=== PATIENT | female | born 1945 | race Caucasian/White ===

== ENCOUNTER 2016-10-16 13:22 | Day surgery (SDC) | payer MEDICARE, BC ==
--- NOTE | 2016-10-21 09:50 | Operative Note ---
DATE OF SURGERY: 10/16/2016 OPERATION: ESOPHAGOGASTRODUODENOSCOPY with biopsy. PREOPERATIVE DIAGNOSIS: Heartburn, episodic dysphagia, and family history of esophageal cancer. POSTOPERATIVE DIAGNOSES: 1. 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 2. Mid esophageal diverticulum. PROCEDURE: After informed consent was obtained from the patient, she was placed in the left lateral decubitus position in the endoscopy suite, sedated and monitored by the department of anesthesia. A well-lubricated [id number] gastroscope was placed in the posterior oropharynx and under direct visualization passed to the proximal esophagus. The endoscope was advanced through the proximal, mid, and distal esophagus. The GE junction demonstrated a large-caliber stricture with associated inflammatory changes of LA grade C severity. The remainder of the esophagus was otherwise unremarkable. The gastric body, antrum, pylorus, duodenal bulb and sweep were unrevealing. J-turn views of the proximal stomach were unremarkable. The endoscope was straightened. GE junction biopsies were obtained. No excessive bleeding was noted. Upon retraction of the endoscope, there was noted to be a large mid esophageal diverticulum. The endoscope was then removed from the patient with no new findings noted. RECOMMENDATIONS: The patient should be on a [id number] proton pump inhibitor. I would recommend a repeat exam in 6-8 weeks to assess healing. As always, thank you for allowing me to participate in the healthcare of your patients. CC: Dr. Harley WEST
== END 2016-10-16 15:22 | disposition home or self-care (01) ==
LOC: HOP 13:22
PROVIDERS: ATTEND Internal Medicine Gastroenterology
DX: Z80.0 Family history of malignant neoplasm of digestive organs (principal); K21.9 Gastro-esophageal reflux disease without esophagitis; E78.00 Pure hypercholesterolemia, unspecified; I10 Essential (primary) hypertension; E11.9 Type 2 diabetes mellitus without complications; Z79.84 Long term (current) use of oral hypoglycemic drugs

== ENCOUNTER 2016-12-11 11:32 | Day surgery (SDC) | payer MEDICARE, BC ==
[2016-12-11] MEDS ORDERED: PROPOFOL 10 MG/ML VIAL IV ONE (14:00)
[2016-12-11] MEDS ORDERED: FENTANYL PF 100MCG/2ML VIAL IV ONE (14:00)
[2016-12-11] MEDS ORDERED: LIDOCAINE 2% MDV (20MG/ML) 20ML VIAL IV ONE (14:00)
--- NOTE | 2016-12-17 16:10 | Operative Note ---
DATE OF SURGERY: 12/11/2016 OPERATION: ESOPHAGOGASTRODUODENOSCOPY. PREOPERATIVE DIAGNOSIS: Ulcerative esophagitis followup. POSTOPERATIVE DIAGNOSES: 1. GE junction ring and small hiatal hernia. 2. Healed esophageal ulcerations. PROCEDURE: After informed consent was obtained from the patient, she was placed in the left lateral decubitus position in the endoscopy suite, sedated and monitored by the department of anesthesia. Once sedated, a well-lubricated [id number] gastroscope was placed in the posterior oropharynx and under direct visualization passed to the proximal esophagus. The endoscope was advanced through the proximal, mid, and distal esophagus. The GE junction demonstrated a ring which was large in caliber. The previous ulcerations appear to have healed. There was a small hiatal hernia. The remainder of the esophagus was normal. The gastric body, antrum, pylorus, duodenal bulb, and sweep were unremarkable. J-turn views of the proximal stomach were unremarkable. The endoscope was then straightened and retracted through the course of the esophagus with no new findings identified. RECOMMENDATIONS: The patient should continue her proton pump inhibitor indefinitely based on the ulcerations that were seen previously. If she has any recurrent symptoms, she should notify me. As always, thank you for allowing me to participate in the healthcare of your patients. CC: Dr. Harley WEST
== END 2016-12-11 14:17 | disposition home or self-care (01) ==
LOC: HOP 11:32
PROVIDERS: ATTEND Internal Medicine Gastroenterology
DX: K22.8 Other specified diseases of esophagus (principal); K44.9 Diaphragmatic hernia without obstruction or gangrene; E11.9 Type 2 diabetes mellitus without complications; Z79.84 Long term (current) use of oral hypoglycemic drugs; I10 Essential (primary) hypertension; E78.00 Pure hypercholesterolemia, unspecified
CPT/HCPCS: 43235; 00740; J3010

== ENCOUNTER 2019-04-25 10:10 | Day surgery (SDC) | payer MEDICARE, BC ==
[2019-04-25] MEDS ORDERED: LIDOCAINE 2% MDV (20MG/ML) 20ML VIAL IV ONE (10:11)
[2019-04-25] MEDS ORDERED: PROPOFOL 10 MG/ML VIAL IV ONE (10:11)
--- NOTE | 2019-04-28 08:20 | Operative Note ---
OPERATION: ESOPHAGOGASTRODUODENOSCOPY with photo. PREOPERATIVE DIAGNOSIS: Episodic nausea and vomiting. POSTOPERATIVE DIAGNOSIS: Small hiatal hernia. Otherwise normal upper endoscopy. PROCEDURE: After informed consent was obtained from the patient, she was placed in the left lateral decubitus position in the endoscopy suite, sedated and monitored by the department of anesthesia. A well-lubricated [id number] gastroscope was placed in the posterior oropharynx under direct visualization and passed to the proximal esophagus. The endoscope was advanced through the proximal, mid, and distal esophagus. The GE junction was unremarkable. The esophagus was unremarkable. There was a very small hiatal hernia. The gastric body, antrum, pylorus, duodenal bulb and sweep were unremarkable. J-turn views of the proximal stomach were unrevealing. The endoscope was straightened. The gastric body, antrum, pylorus, duodenal bulb and sweep were again inspected and no new findings or abnormalities were identified. The endoscope was then retracted through the proximal stomach and esophagus with no new findings or abnormalities identified other than a small hiatal hernia. RECOMMENDATIONS: We will await results of the patient's upcoming CT scan, as there is concern for possible metastatic lesions in the liver. At this point, there are no upper GI findings which would explain the liver abnormalities. Further recommendations will be based on further data. Perhaps she may require further investigation. There may be even a biopsy of one of the lesions or even a colonoscopy if that has not been recently performed. As always, thank you for allowing me to participate in the healthcare of your patients. BRETT
== END 2019-04-25 12:00 | disposition home or self-care (01) ==
LOC: HOP 10:10
PROVIDERS: ATTEND Internal Medicine Gastroenterology
DX: R11.2 Nausea with vomiting, unspecified (principal); K44.9 Diaphragmatic hernia without obstruction or gangrene; K21.9 Gastro-esophageal reflux disease without esophagitis; R16.0 Hepatomegaly, not elsewhere classified; I10 Essential (primary) hypertension; E11.9 Type 2 diabetes mellitus without complications
CPT/HCPCS: 80053